=== PATIENT | male | born 1955 | race Caucasian/White ===

== ENCOUNTER 2023-07-28 07:33 | Emergency (ER) | payer MEDICARE, BC ==
[2023-07-28] MEDS: Sodium Chloride 0.9% 1,000 ML IV ONE (08:22)
[2023-07-28] MEDS: Ketorolac 30 MG/ML SDV IVPUSH ONE (08:22)
[2023-07-28] MEDS: HYDROmorphone 0.5 MG/0.5 ML Syringe IVPUSH ONE (08:23)
[2023-07-28 08:24] LABS: BASOPHILS PERCENT AUTO 0.3 % (0.0-1.0); EOSINOPHILS PERCENT AUTO 0.4 % (1.0-3.0); HEMATOCRIT 35.6 % (40.0-54.0); LYMPHOCYTES PERCENT AUTO 11.9 % (20.5-50.1); MEAN CORPUSCULAR HEMOGLOBIN 31.6 pg (27.0-34.0); MEAN CORPUSCULAR HGB CONC 33.7 g/dL (33.0-35.0); MEAN CORPUSCULAR VOLUME 93.7 fL (80-100); MONOCYTES PERCENT AUTO 11.1 % (2-8); NEUTROPHILS PERCENT AUTO 76.3 % (42.2-75.2); PLATELET COUNT,PLT 131 10^3/uL (150-450); WHITE BLOOD CELL COUNT,WBC 11.7 10^3/uL (5.0-10.0)
[2023-07-28 08:35] LABS: A/G RATIO 1.3; ALANINE AMINOTRANSFERASE,ALT 21 U/L (16-63); ALBUMIN 4.1 g/dL (3.4-5.0); ALKALINE PHOSPHATASE 76 U/L (46-116); ANION GAP 18.5 mEq/L (7-13); ASPARTATE AMNIOTRANSFERASE,AST 17 U/L (15-37); BILIRUBIN TOTAL 1.1 mg/dL (0.2-1.0); BLOOD UREA NITROGEN,BUN 30 mg/dL (7-18); BUN/CREATININE RATIO 21.4 (No establ ref range); CARBON DIOXIDE,CO2 24 mmol/L (21-32); CHLORIDE,CL 101 mmol/L (98-107); GLUCOSE RANDOM 238 mg/dL (70-99); POTASSIUM,K 4.5 mmol/L (3.5-5.1); PROTEIN TOTAL,TP 7.3 g/dL (6.4-8.2); SODIUM,NA 139 mmol/L (136-145)
[2023-07-28 08:39] LABS: ESTIMATED GFR 54 mL/min (>=60)
[2023-07-28] MEDS: Iopamidol 612 MG/ML 100 ML Bottle IVPUSH ONE (09:17)
[2023-07-28] MEDS: Benzocaine 20% Topical Spray UD MUCMEM ONE (10:10)
== END 2023-07-28 11:25 ==
LOC: DL.ED 07:33
DX: K56.609 Unspecified intestinal obstruction, unspecified as to partial versus complete obstruction (principal); I10 Essential (primary) hypertension; E78.00 Pure hypercholesterolemia, unspecified; F17.210 Nicotine dependence, cigarettes, uncomplicated; Z79.82 Long term (current) use of aspirin; Z79.899 Other long term (current) drug therapy
CPT/HCPCS: 36415; 43752; 71045; 74018; 74177; 80053; 83605; 83690; 85025; 96361; 96374; 96375; 99284; 99285-25; A9270-GY; J1170; J1885; J7030; Q9967